=== PATIENT | female | born 1980 | race Two or more races ===

== ENCOUNTER → 2024-01-03 | Outpatient (CLI) | payer MEDICAID, SELFPAY ==
--- NOTE | 2024-01-03 13:00 | XR_ITS ---
Examination: Screening digital mammography, bilateral Computer aided detection 3-D breast Tomosynthesis, bilateral Date and time of exam: January 03, 2024 1333 hours Compared to mammograms dating to July 02, 2021 Indication: Screening Technique: Nonmagnified MLO, CC views of the breasts to been obtained, reconstructed from 3-D Tomosynthesis images. R2 computer aided detection program utilized for evaluation of suspicious masses and/or abnormal calcifications. 3-D Tomosynthesis images obtained. Findings: The breasts are heterogeneously dense, which may obscure small masses 10 mm focal asymmetry outer left breast CC view, 7 cm from the nipple Benign calcifications Impression: BI-RADS Category 0: Incomplete: Need additional imaging evaluation 10 mm focal asymmetry outer left breast CC view, 7 cm from the nipple, recommend follow-up spot tomographic views upper outer quadrant left breast left breast sonography to complete the workup
--- NOTE | 2024-01-03 13:30 | XR_ITS ---
Examination: Bone densitometry Date and time of exam:January 03, 2024 1347 hours INDICATIONS: Patient is status post early menopause Technique: Lumbar spine and hip total bone mineralization values of an calculated. Peak reference and age match control results have been displayed. Findings: Lumbar spine total bone mineralization is0.996 gm/cm2. This is 0.5 standard deviations below peak reference. This is 0.1 standard deviations below age-matched controls. Hip total bone mineralization is 0.846 gm/cm2 This is 0.8 standard deviations below peak reference. This is 0.5 standard deviations below age-matched controls Impression: There is normal mineralization based on lumbar spine measurements. There is normal mineralization based on hip measurements
== END | disposition home or self-care (01) ==
LOC: CDIM 13:22
PROVIDERS: Referring Provider Internal Medicine; Visit Provider Internal Medicine
DX: Z12.31 Encounter for screening mammogram for malignant neoplasm of breast (principal); R92.8 Other abnormal and inconclusive findings on diagnostic imaging of breast; N64.89 Other specified disorders of breast; M85.80 Other specified disorders of bone density and structure, unspecified site
CPT/HCPCS: 77063; 77067; 77080

== ENCOUNTER 2024-02-07 14:00 | Outpatient (RCR) | payer MEDICAID, SELFPAY ==
--- NOTE | 2024-01-24 14:10 | PTNOTE_ITS ---
PT OP Initial Eval Patient Information Outpatient Physical Therapy Treatment Date: 01/24/24 Visit Reasons: Scoloisis Medical Diagnosis: Scoliosis Treatment Dx #1: Back Pain Treatment Dx #2: Mid Back Pain Start of Care: 01/24/24 Smoking Status Smoking Status: Never smoker Initial Assessment Subjective: Pt is a 43 y/o female reports of chronic mid and lower back pain (5/10) with intermittent symptoms down the left leg. Pt's xray confirmed 11 deg of dextroscoliosis in the thoracic spine and 13 deg of levoscoliosis. Pt has limitation with sitting, standing, chores, self care, lifting, and performing recreational activities. Objective: T/S and L/S AROM: all motions are WFL except right side bending and right rotation Scapula MMTs: grossly 3/5 BUE AROM: all motions are WFL BUE MMTs: grossly 3/5 Hip PROM: all motions are WFL Hip MMTs: grossly 3/5 Posture: right trunk sidebend, right hip elevation; scapula wing R>L with elevation Muscle Lenght: Hs tightness L>R Assessment: Pt demonstrate abnormal posture and back pain consistent with scoliosis leading to difficulty with ADLs. Pt will attempt physical therapy if pain persist Pt will be refer back to provider for further consultation. Short Term and Retirement Goals 1) Improve posture to be able to sit and stand more than 30 mins in 6 wks 2) Decrease back pain to 2/10 in 6 wks to be able to perform chores 3) Increase core strength WFL in 6 wks to be able to perform recreational activities 4) Increase scapula MMTs grossly to 4-/5 in 6 wks to be able to perform lifting activities 5) Indep with HEP Treatment Plan 1) Manual Therapy 2) Therapeutic Activities 3) Therapeutic Exercises 4) Modalities (ice, heat) Frequency and Duration: 2 x wk for 6 wks Certification Dates: 01/24/24 to 04/23/24 Procedure Charges OP PT Eval Mod Complex 30 minutes: Yes
--- NOTE | 2024-01-31 11:42 | PT.ODAYNRPT ---
PT Outpatient Daily Note OP Daily Note Outpatient Physical Therapy Treatment Date: 01/31/24 Visit Reasons: Scoloisis Subjective: Pt's back feels okay. No new concerns to report. Objective: Please see flow chart for list of ther ex performed Assessment: tolerate exercises performed with minimal pain reported Plan: Continue with PT Length of Time (minutes) of Treatment: 30 Minutes Procedure Charges Therapeutic Exercise 30 minutes: Yes
--- NOTE | 2024-02-03 12:56 | PT.ODAYNRPT ---
PT Outpatient Daily Note OP Daily Note Outpatient Physical Therapy Treatment Date: 02/03/24 Visit Reasons: Scoloisis Subjective: Pt's back was sore after last session, however, felt better the next day. Objective: Please see flow chart for list of ther ex performed Assessment: difficulty completing wall james due to pain; only performed half of instructed reps. Pt demonstrate improved Hs length Plan: Continue with PT Length of Time (minutes) of Treatment: 30 Minutes Procedure Charges Therapeutic Exercise 30 minutes: Yes
--- NOTE | 2024-02-07 15:30 | PTNOTE_ITS ---
PT Outpatient Daily Note OP Daily Note Outpatient Physical Therapy Treatment Date: 02/07/24 Visit Reasons: Scoloisis Subjective: Pt notice increase flexibility, however, left leg still has nerve pain and weakness Objective: Please see flow chart for list of ther ex performed Assessment: instructed patient on seated nerve floss at home to help alleviate left LE ne urologic pain Plan: Continue with PT Length of Time (minutes) of Treatment: 30 Minutes Procedure Charges Therapeutic Exercise 30 minutes: Yes
== END 2024-02-07 23:59 | disposition home or self-care (01) ==
LOC: CPTX 14:00
PROVIDERS: PCP Internal Medicine; Referring Provider Internal Medicine; Visit Provider Internal Medicine
DX: M54.6 Pain in thoracic spine (principal); M54.50 Low back pain, unspecified; M41.84 Other forms of scoliosis, thoracic region
CPT/HCPCS: 97110; 97162

== ENCOUNTER 2024-02-28 11:30 | Outpatient (RCR) | payer MEDICAID, SELFPAY ==
--- NOTE | 2024-02-21 13:17 | PT.ODAYNRPT ---
PT Outpatient Daily Note OP Daily Note Outpatient Physical Therapy Treatment Date: 02/21/24 Visit Reasons: scolosis Subjective: Pt reports back pain has been worse lately and mentioned pain down her L LE has also been worse. Pt shared that sitting for prolonged periods aggravated symptoms. Objective: Please see flow sheet for ther ex list. Assessment: Pt instructed on repeated lumbar extension in prone, pt reported increase in LE symptoms, exercises discontinued. Plan: Continue with pOC. Length of Time (minutes) of Treatment: 30 Minutes Procedure Charges Therapeutic Exercise 30 minutes: Yes
--- NOTE | 2024-02-28 14:53 | PT.ODS1RPT ---
PT OP Progress/Discharge Note Date of Service: 02/28/24 Progress Note/DC Note Progress Note/Discharge Note: DC Note Patient Information Visit Reasons: scolosis Medical Diagnosis: Scoliosis Treatment Dx #1: Back Pain Service Discharge Date: 02/28/24 Status Subjective: Pt's mid and neck pain has been better since starting physical therapy. Pt reports of less headache and improved overall mobility. Pt has been able to sit, stand, and perform chores with less limitation. Pt is more concern about her numbness in the left leg which seem to worsening over the last few weeks. Pt notice numbness and tingling constantly lately. Objective: T/S and L/S AROM: all motions are WFL Scapula MMTs: grossly 3+/5 BUE AROM: all motions are WNL BUE MMTs: grossly 3+/5 Hip PROM: all motions are WNL Hip MMTs: grossly 3+/5 Special Test (+) SLR Assessment: Pt demonstrate slight improvement with spinal mobility allowing her to resume ADLs with less limitation. Despite Pt's improvement Pt has notice more intense left LE numbness and tingling lately leading to limitation with sitting, standing, and prolonged walking. At this time Pt will stop physical therapy and recommend lumbar MRI to help rule in/out nature of left LE pain. Pt was instructed on HEP last session and educated to continue exercises to maintain overall mobility. Pt performed all exercises safely, thank you for your referrals. Plan: D/C home with HEP and follow up with MD MARAVILLA Recommend Lumbar spine MRI Procedure Charges Therapeutic Exercise 30 minutes: Yes
== END 2024-03-09 23:59 | disposition home or self-care (01) ==
LOC: CPTX 11:30
PROVIDERS: PCP Internal Medicine; Referring Provider Internal Medicine; Visit Provider Internal Medicine
DX: M54.6 Pain in thoracic spine (principal); M54.50 Low back pain, unspecified; M79.605 Pain in left leg; M41.84 Other forms of scoliosis, thoracic region; R20.0 Anesthesia of skin
CPT/HCPCS: 97110

== ENCOUNTER → 2024-03-01 | Outpatient (CLI) | payer MEDICAID, SELFPAY ==
--- NOTE | 2024-03-01 | XR_ITS ---
Examination: Diagnostic digital mammography, unilateral, left Computer aided detection 3-D breast Tomosynthesis, unilateral Date and time of exam: March 01, 2024 1238 hrs. Indications: Mammogram January 03, 2024 10 mm focal asymmetry outer left breast CC view, 7 cm from nipple Technique: Nonmagnified MLO, CC views of the left breast have been obtained, reconstructed from 3-D Tomosynthesis images. R2 computer aided detection program utilized for evaluation of suspicious masses and/or abnormal calcifications. 3-D Tomosynthesis images obtained. Findings: The breast is heterogeneously dense, which may obscure small masses Focal asymmetry is noted on the spot compression views, 13 mm on the MLO view, retroareolar Impression: BI-RADS category 3: Probably benign findings Follow-up six-month left mammogram is needed to document stability of focal asymmetry retroareolar left breast MLO view
--- NOTE | 2024-03-01 | XR_ITS ---
Examination: Breast ultrasound, unilateral, left complete Date and time of exam: March 01, 2024 1153 hours INDICATIONS: Mammogram January 03, 2024 10 mm focal asymmetry outer left breast CC view, 7 cm from the nipple Technique: Real-time edwards scale ultrasonographic imaging performed left breast including all 4 quadrants as well as nipple retroareolar and axillary region. Findings: Retroareolar cyst 9 x 9 mm Left axillary lymph node 2.7 x 1.6 cm No solid breast nodules IMPRESSION: BI-RADS Category 2: Benign findings
== END | disposition home or self-care (01) ==
PROVIDERS: PCP Internal Medicine; Referring Provider Internal Medicine; Visit Provider Internal Medicine
DX: R92.332 Mammographic heterogeneous density, left breast (principal); N64.89 Other specified disorders of breast
CPT/HCPCS: 76641; 77061; 77065; G0279

== ENCOUNTER → 2024-10-11 | Outpatient (CLI) | payer MEDICAID, SELFPAY ==
--- NOTE | 2024-10-11 09:15 | XR_ITS ---
Examination: MRI cervical spine without intravenous contrast Date and time of exam: October 11, 2024 0942 hours INDICATIONS: Left-sided neck pain radiating down the back and left arm 2 years Technique: Multiple axial and sagittal sections of the cervical spine to been obtained. T2 weighted sagittal sections, TR 3, 270, TE 117 T1-weighted sagittal sections, TR 500, TE 11 T1-weighted axial sections, TR 607, TE 12, axial sections TR 18, TE 27 and T2 weighted transverse sections, TR 3920, TE 122. Findings: Satisfactory alignment cervical vertebral disc. No cervical fracture. Intact odontoid Diffuse cervical disc desiccation. Mild to moderate disc narrowing C4-C5, C5-C6, C6-C7 No localized enlargement cervical cord C2-C3 no disc protrusion C3-C4 no disc protrusion C4-C5 3 mm central subarticular osteophyte disc complex, advanced bilateral neural foraminal stenosis C5-C6 no disc protrusion C6-C7 mild left neural foraminal stenosis C7-T1 no disc protrusion IMPRESSION: C4-C5 3 mm central subarticular osteophyte disc complex, advanced bilateral neural foraminal stenosis
== END | disposition home or self-care (01) ==
PROVIDERS: PCP Internal Medicine; Referring Provider Psychiatry & Neurology Neurology; Visit Provider Psychiatry & Neurology Neurology
DX: M25.78 Osteophyte, vertebrae (principal); M48.02 Spinal stenosis, cervical region
CPT/HCPCS: 72141

== ENCOUNTER → 2024-11-29 | Outpatient (CLI) | payer MEDICAID, SELFPAY ==
--- NOTE | 2024-11-29 14:15 | XR_ITS ---
Examination: Diagnostic digital mammography, unilateral, left Computer aided detection 3-D breast Tomosynthesis, unilateral Date and time of exam: November 29, 2024, 1351 hours INDICATIONS: Mammogram January 03, 2020 for 10 mm focal asymmetry outer left breast 7 cm from the nipple Technique: Nonmagnified MLO, CC views of the left breast have been obtained, reconstructed from 3-D Tomosynthesis images. R2 computer aided detection program utilized for evaluation of suspicious masses and/or abnormal calcifications. 3-D Tomosynthesis images obtained. Findings: The breast is heterogeneously dense, which may obscure small masses Stable focal asymmetry outer left breast cc view No interval suspicious masses Impression: BI-RADS category 2: Benign findings Return to yearly follow-up mammography
== END | disposition home or self-care (01) ==
PROVIDERS: Referring Provider Internal Medicine; Visit Provider Internal Medicine
DX: R92.323 Mammographic fibroglandular density, bilateral breasts (principal)
CPT/HCPCS: 77061; 77065; G0279